=== PATIENT | female | born 1970 | race Hispanic/Latino ===

== ENCOUNTER 2024-05-19 18:44 | Emergency (ER) | payer SELFPAY ==
[~2024-05-19] VITALS: Ht 167.6 cm; Wt 128.8 kg
[2024-05-19] MEDS ORDERED: ULTRAM 50MG50 MG PO (21:41)
[2024-05-19 21:45] VITALS: PULSE 89; RESP 16; TEMP 98.9; O2SAT 100
== END 2024-05-19 21:45 | disposition home or self-care (01) ==
LOC: ER 18:50
DX: M25.562 Pain in left knee (principal); M25.561 Pain in right knee; M25.572 Pain in left ankle and joints of left foot; M54.50 Low back pain, unspecified; W01.0XXA Fall on same level from slipping, tripping and stumbling without subsequent striking against object, initial encounter; Y93.01 Activity, walking, marching and hiking; Y92.89 Other specified places as the place of occurrence of the external cause
CPT/HCPCS: 72100; 99283